=== PATIENT | male | born 1965 | race Caucasian/White ===

== ENCOUNTER 2019-06-15 05:57 | Observation (INO) | payer OTHER, SELFPAY ==
[2019-06-15] MEDS ORDERED: NA CHLORIDE 0.9% 1,000 ML ONE ×2 (06:13→08:43)
[2019-06-15] MEDS ORDERED: MORPHINE 4 MG/ML SYR ONE ×2 (06:13→07:04)
[2019-06-15] MEDS ORDERED: ONDANSETRON 4 MG/2 ML VIAL ONE ×2 (06:13→07:04)
[2019-06-15 06:33] LABS: Absolute Lymphocytes (CBC) 1.7 K/uL (0.7-4.9); Basophils % 0.3 % (0-1.3); Hematocrit 46.5 % (39.6-49.0); Lymphocytes % 10.2 % (15.3-44.8); MPV 8.1 fL (7.6-11.3); RBC Red Blood Cell Count 5.24 M/uL (4.33-5.43)
[2019-06-15 07:42] LABS: ALT/SGPT 18 U/L (12-78); AST/SGOT 13 U/L (15-37); Albumin 3.8 g/dL (3.4-5.0); Alkaline Phosphatase 74 U/L (45-117); BUN Blood Urea Nitrogen 14 mg/dL (7-18); Bicarbonate 27 mmol/L (21-32); Bilirubin Direct < 0.1 mg/dL (0-0.2); Bilirubin Total 0.3 mg/dL (0.2-1.0); Glucose Level 125 mg/dL (74-106); Lipase 104 U/L (73-393); Potassium 4.3 mmol/L (3.5-5.1); Protein, Total 6.7 g/dL (6.4-8.2); Sodium Level 144 mmol/L (136-145)
--- NOTE | 2019-06-15 08:09 | ER ---
Nurse's Notes [facility] Name: Davion Rivera Age: 53 yrs Sex: Male : 1965 Arrival Date: 06/15/2019 Time: 06:00 Bed 20 Private MD: Diagnosis: Cholecystitis;Cholelithiasis Presentation: 06/15 06:08 Presenting complaint: Patient states: he is having abdominal pain with vomiting and bb diarrhea since approx 0230 this morning. Transition of care: patient was not received from another setting of care. Onset of symptoms was June 15, 2019. Risk Assessment: Do you want to hurt yourself or someone else? Patient reports no desire to harm self or others. Initial Sepsis Screen: Does the patient meet any 2 criteria? No. Patient's initial sepsis screen is negative. Does the patient have a suspected source of infection? No. Patient's initial sepsis screen is negative. Care prior to arrival: None. 06:08 Method Of Arrival: Ambulatory bb 06:08 Acuity: CLEVE 3 bb Historical: - Allergies: 06:10 PENICILLINS; bb - Home Meds: 06:10 None [Active]; bb - PMHx: 06:10 gallstones; bb - PSHx: 06:10 Tonsillectomy; bb - Immunization history:: Adult Immunizations up to date. - Social history:: Smoking status: Patient uses tobacco products, smokes one pack cigarettes per day. Patient uses alcohol, occasionally. Patient/guardian denies using street drugs. - Ebola Screening: : No symptoms or risks identified at this time. Screenin:24 Abuse screen: Denies threats or abuse. Denies injuries from another. Nutritional rr5 screening: No deficits noted. Tuberculosis screening: No symptoms or risk factors identified. Fall Risk IV access (20 points). Total Cardona Fall Scale indicates No Risk (0-24 pts). Assessment: 06:15 General: Appears in no apparent distress. uncomfortable, Behavior is calm, cooperative, rr5 appropriate for age. Pain: Complains of pain in left upper quadrant and left lower quadrant Pain does not radiate. Pain currently is 7 out of 10 on a pain scale. Quality of pain is described as aching, Pain began gradually, Is intermittent. Neuro: Level of Consciousness is awake, alert, obeys commands, Oriented to person, place, time, situation, Appropriate for age. Cardiovascular: Capillary refill is > 3 seconds Patient's skin is warm and dry. Respiratory: Airway is patent Respiratory effort is even, unlabored, Respiratory pattern is regular, symmetrical. GI: Abdomen is round Reports lower abdominal pain, upper abdominal pain, intolerance of fluids, intolerance of food, nausea, vomiting. : No signs and/or symptoms were reported regarding the genitourinary system. EENT: No signs and/or symptoms were reported regarding the EENT system. Derm: Skin is intact, Skin temperature is warm. Musculoskeletal: Circulation, motion, and sensation intact. Capillary refill < 3 seconds. 07:04 Reassessment: Patient appears in no apparent distress at this time. Patient and/or em family updated on plan of care and expected duration. Pain level reassessed. Patient is alert, oriented x 3, equal unlabored respirations, skin warm/dry/pink. rates pain 7/10, provider notified, new medication orders received. 08:05 Reassessment: Patient appears in no apparent distress at this time. Patient and/or em family updated on plan of care and expected duration. Pain level reassessed. Patient is alert, oriented x 3, equal unlabored respirations, skin warm/dry/pink. rates pain 4/10 Patient states feeling better. 08:35 Reassessment: Dr. Merino at bedside. em 09:35 Reassessment: Patient appears in no apparent distress at this time. Patient and/or em family updated on plan of care and expected duration. Pain level reassessed. Patient is alert, oriented x 3, equal unlabored respirations, skin warm/dry/pink. Patient states feeling better. Patient states symptoms have improved. Vital Signs: 06:10 BP 166 / 78; Pulse 69; Resp 22 S; Temp 98(O); Pulse Ox 100% on R/A; Weight 90.72 kg bb (R); Height 5 ft. 11 in. (180.34 cm) (R); Pain 7/10; 06:33 BP 159 / 90; Pulse 62; Resp 20; Pulse Ox 98% on R/A; Pain 4/10; rr5 07:04 BP 148 / 71; Pulse 73; Resp 18; Pulse Ox 96% on R/A; Pain 7/10; em 08:05 BP 156 / 89; Pulse 77; Resp 16; Pulse Ox 98% on R/A; Pain 4/10; em 06:10 Body Mass Index 27.89 (90.72 kg, 180.34 cm) bb ED Course: 06:00 Patient arrived in ED. es 06:01 [facility] kb 06:01 Jordan Wheat MD is Attending Physician. kb 06:09 Triage completed. bb 06:10 Arm band placed on Patient placed in an exam room, on a stretcher, on pulse oximetry. bb Family accompanied patient. 06:10 Patient has correct armband on for positive identification. Placed in gown. Bed in low rr5 position. Call light in reach. Side rails up X2. Pulse ox on. NIBP on. 06:20 Inserted saline lock: 22 gauge in right antecubital area, using aseptic technique. rr5 ,using aseptic technique. inserted by emily GARCIA Blood collected. 06:23 Ever Lopez RN is Primary Nurse. rr5 06:35 Thermoregulation: warm blanket given to patient. rr5 07:40 Ultrasound completed. Patient tolerated well. Notified SHACKLER/PA tita. sg3 08:09 Dharmesh Merino MD is Hospitalizing Provider. kb 09:45 No provider procedures requiring assistance completed. Patient admitted, IV remains in em place. Administered Medications: 06:20 Drug: NS 0.9% 1000 ml Route: IV; Rate: 1000 ml; Site: right antecubital; rr5 08:17 Follow up: IV Status: Completed infusion; IV Intake: 1000ml em 06:21 Drug: Zofran 4 mg Route: IVP; Site: right antecubital; rr5 07:30 Follow up: Response: No adverse reaction em 06:23 Drug: morphine 4 mg {Note: rass 0.} Route: IVP; Site: right antecubital; rr5 07:30 Follow up: Response: No adverse reaction em 07:09 Drug: morphine 4 mg Route: IVP; Site: right antecubital; jl7 08:16 Follow up: Response: No adverse reaction; Pain is decreased; RASS: Alert and Calm (0) em 07:09 Not Given (Duplicate Order): morphine 4 mg IVP once; RASS on ADMIN: Combtv4, Very jl7 Agttd3, Agttd2, Rstlss1, AlertClm0, Drwsy-1, Lt Sdtn-2, Mod Sdtn-3, Dp Sdtn-4, UnArsble-5 07:09 Drug: Zofran 4 mg Route: IVP; Site: right antecubital; jl7 08:16 Follow up: Response: No adverse reaction em 08:14 Drug: Flagyl 500 mg Volume: 100 ml; Route: IVPB; Rate: 200 ml/hr; Infused Over: 30 em mins; Site: right antecubital; 08:51 Follow up: Response: No adverse reaction; IV Status: Completed infusion; IV Intake: em 100ml 08:43 Drug: NS 0.9% 1000 ml Route: IV; Rate: 125 ml/hr; Site: right antecubital; iw 09:48 Follow up: IV Status: Infusion continued upon admission; IV Intake: 100ml em 08:51 Drug: LevaQUIN 500 mg Volume: 100 ml; Route: IVPB; Infused Over: 60 mins; Site: right em antecubital; 09:48 Follow up: Response: No adverse reaction; IV Status: Completed infusion; IV Intake: em 100ml Intake: 08:17 IV: 1000ml; Total: 1000ml. em 08:51 IV: 100ml; Total: 1100ml. em 09:48 IV: 100ml; Total: 1200ml. em 09:48 IV: 100ml; Total: 1300ml. em Outcome: 08:09 Decision to Hospitalize by Provider. kb 09:45 Admitted to OR accompanied by nurse, family with patient, via stretcher. em 09:45 Condition: good 09:45 Instructed on the need for admit, Demonstrated understanding of instructions. 09:48 Patient left the ED. em Signatures: Tita Borges, PROJECT LEADER-C PROJECT LEADER-Ckb Marbella Macedo Edgar, MANAGER FLOAT MANAGER FLOAT em Emily Hurley, RN RN bb Coco Mccoy RN RADHA iw Lia Casas RN RN jl7 Yamini Ruiz [facility] [place] Lopez RN RN rr5 Corrections: (The following items were deleted from the chart) 06:34 06:33 BP 159 / 90; Pulse 62bpm; Resp 20bpm; Pulse Ox 98% RA; rr5 rr5
[2019-06-15] MEDS ORDERED: Levofloxacin500mg IV 500 MG/100 ML BAG IV ONE (08:10)
[2019-06-15] MEDS ORDERED: METRONIDAZOLE 500mg IVPB 500 MG/100 ML BAG IV ONE (08:10)
--- NOTE | 2019-06-15 08:10 | EDPHYS ---
Physician Documentation [facility] Name: Davion Rivera Age: 53 yrs Sex: Male : 1965 Arrival Date: 06/15/2019 Time: 06:00 Bed 20 Private MD: ED Physician Jordan Wheat HPI: 06/15 06:16 This 53 yrs old Male presents to ER via Ambulatory with complaints of kb Vomiting/Diarrhea, Abdominal Pain. 06:16 The patient has not experienced similar symptoms in the past. The patient has not kb recently seen a physician. 06:16 The patient presents with abdominal pain in the upper abdomen. Onset: The kb symptoms/episode began/occurred this morning, at 02:30. The symptoms do not radiate. Associated signs and symptoms: Pertinent positives: nausea, vomiting, and diarrhea. The symptoms are described as constant, sharp. Modifying factors: The symptoms are alleviated by nothing, the symptoms are aggravated by nothing. Severity of pain: At its worst the pain was moderate severe in the emergency department the pain is unchanged. Pt reports upper abd pain that started at 0230. Has had this pain in the past and told it was gallstones, but didn't follow up with a surgeon. Historical: - Allergies: 06:10 PENICILLINS; bb - Home Meds: 06:10 None [Active]; bb - PMHx: 06:10 gallstones; bb - PSHx: 06:10 Tonsillectomy; bb - Immunization history:: Adult Immunizations up to date. - Social history:: Smoking status: Patient uses tobacco products, smokes one pack cigarettes per day. Patient uses alcohol, occasionally. Patient/guardian denies using street drugs. - Ebola Screening: : No symptoms or risks identified at this time. ROS: 06:15 Constitutional: Negative for fever, chills, and weight loss, Cardiovascular: Negative kb for chest pain, palpitations, and edema, Respiratory: Negative for shortness of breath, cough, wheezing, and pleuritic chest pain, Back: Negative for injury and pain, : Negative for injury, bleeding, discharge, and swelling, MS/Extremity: Negative for injury and deformity, Skin: Negative for injury, rash, and discoloration, Neuro: Negative for headache, weakness, numbness, tingling, and seizure. 06:15 Abdomen/GI: Positive for abdominal pain, nausea, vomiting, and diarrhea. Exam: 06:15 Constitutional: This is a well developed, well nourished patient who is awake, alert, kb and in no acute distress. Head/Face: Normocephalic, atraumatic. Neck: Trachea midline, no thyromegaly or masses palpated, and no cervical lymphadenopathy. Supple, full range of motion without nuchal rigidity, or vertebral point tenderness. No Meningismus. Chest/axilla: Normal chest wall appearance and motion. Nontender with no deformity. No lesions are appreciated. Cardiovascular: Regular rate and rhythm with a normal S1 and S2. No gallops, murmurs, or rubs. Normal PMI, no JVD. No pulse deficits. Respiratory: Lungs have equal breath sounds bilaterally, clear to auscultation and percussion. No rales, rhonchi or wheezes noted. No increased work of breathing, no retractions or nasal flaring. Back: No spinal tenderness. No costovertebral tenderness. Full range of motion. Skin: Warm, dry with normal turgor. Normal color with no rashes, no lesions, and no evidence of cellulitis. MS/ Extremity: Pulses equal, no cyanosis. Neurovascular intact. Full, normal range of motion. Neuro: Awake and alert, GCS 15, oriented to person, place, time, and situation. Cranial nerves II-XII grossly intact. Motor strength 5/5 in all extremities. Sensory grossly intact. Cerebellar exam normal. Normal gait. 06:15 Abdomen/GI: Inspection: abdomen appears normal, Bowel sounds: normal, in all quadrants, Palpation: soft, in all quadrants, moderate abdominal tenderness, in the right upper quadrant, left upper quadrant and left lower quadrant. Vital Signs: 06:10 BP 166 / 78; Pulse 69; Resp 22 S; Temp 98(O); Pulse Ox 100% on R/A; Weight 90.72 kg bb (R); Height 5 ft. 11 in. (180.34 cm) (R); Pain 7/10; 06:33 BP 159 / 90; Pulse 62; Resp 20; Pulse Ox 98% on R/A; Pain 4/10; rr5 07:04 BP 148 / 71; Pulse 73; Resp 18; Pulse Ox 96% on R/A; Pain 7/10; em 08:05 BP 156 / 89; Pulse 77; Resp 16; Pulse Ox 98% on R/A; Pain 4/10; em 06:10 Body Mass Index 27.89 (90.72 kg, 180.34 cm) bb MDM: 06:02 Patient medically screened. kb 06:15 Data reviewed: vital signs, nurses notes. Data interpreted: Pulse oximetry: on room air kb is 100 %. Interpretation: normal. 08:08 Counseling: I had a detailed discussion with the patient and/or guardian regarding: the kb historical points, exam findings, and any diagnostic results supporting the discharge/admit diagnosis, lab results, radiology results, the need for further work-up and treatment in the hospital. Physician consultation: Dharmesh Merino MD was called at 08:05, regarding admission, to the medical/surgical unit. patient's condition, and will see patient shortly. 06/15 06:07 Order name: Basic Metabolic Panel; Complete Time: 07:44 kb 06/15 06:07 Order name: CBC with Diff; Complete Time: 09:38 kb 06/15 06:07 Order name: Hepatic Function; Complete Time: 07:44 kb 06/15 06:07 Order name: Lipase; Complete Time: 07:44 kb 06/15 06:07 Order name: US Abdomen Limited kb 06/15 09:37 Order name: Manual Differential; Complete Time: 09:38 EDMS 06/15 08:43 Order name: US; Complete Time: 08:44 EDMS 06/15 06:07 Order name: IV Saline Lock; Complete Time: 06:24 kb 06/15 06:07 Order name: Labs collected and sent; Complete Time: 06:24 kb Administered Medications: 06:20 Drug: NS 0.9% 1000 ml Route: IV; Rate: 1000 ml; Site: right antecubital; rr5 08:17 Follow up: IV Status: Completed infusion; IV Intake: 1000ml em 06:21 Drug: Zofran 4 mg Route: IVP; Site: right antecubital; rr5 07:30 Follow up: Response: No adverse reaction em 06:23 Drug: morphine 4 mg {Note: rass 0.} Route: IVP; Site: right antecubital; rr5 07:30 Follow up: Response: No adverse reaction em 07:09 Drug: morphine 4 mg Route: IVP; Site: right antecubital; jl7 08:16 Follow up: Response: No adverse reaction; Pain is decreased; RASS: Alert and Calm (0) em 07:09 Not Given (Duplicate Order): morphine 4 mg IVP once; RASS on ADMIN: Combtv4, Very jl7 Agttd3, Agttd2, Rstlss1, AlertClm0, Drwsy-1, Lt Sdtn-2, Mod Sdtn-3, Dp Sdtn-4, UnArsble-5 07:09 Drug: Zofran 4 mg Route: IVP; Site: right antecubital; jl7 08:16 Follow up: Response: No adverse reaction em 08:14 Drug: Flagyl 500 mg Volume: 100 ml; Route: IVPB; Rate: 200 ml/hr; Infused Over: 30 em mins; Site: right antecubital; 08:51 Follow up: Response: No adverse reaction; IV Status: Completed infusion; IV Intake: em 100ml 08:43 Drug: NS 0.9% 1000 ml Route: IV; Rate: 125 ml/hr; Site: right antecubital; iw 09:48 Follow up: IV Status: Infusion continued upon admission; IV Intake: 100ml em 08:51 Drug: LevaQUIN 500 mg Volume: 100 ml; Route: IVPB; Infused Over: 60 mins; Site: right em antecubital; 09:48 Follow up: Response: No adverse reaction; IV Status: Completed infusion; IV Intake: em 100ml Disposition: 22:51 Co-signature as Attending Physician, Jordan Wheat MD. Disposition: 06/15/19 08:09 Hospitalization ordered by Dharmesh Merino for Observation. Preliminary diagnosis are Cholecystitis, Cholelithiasis. - Bed requested for Telemetry/MedSurg (observation). - Status is Observation. em - Condition is Stable. - Problem is new. - Symptoms are unchanged. UTI on Admission? No Signatures: Dispatcher [employer] Tita Naik, DREA-Dimitry CABLE REPAIRER-Leo Rodriguez, FACILITY ATTENDANT FACILITY ATTENDANT em Emily Hurley, RN RN bb Coco Mccoy, RADHA GARCIA iw Lia Casas RN RN jl7 Jordan Wheat MD MD Ever Lopez RN RN rr5 Corrections: (The following items were deleted from the chart) 06:18 06:16 Severity of symptoms: At their worst the symptoms were moderate severe in the emergency department the symptoms are unchanged 09:48 08:09 Hospitalization Ordered by Dharmesh Merino MD for Observation. Preliminary diagnosis em is Cholecystitis; Cholelithiasis. Bed requested for Telemetry/MedSurg (observation). Status is Observation. Condition is Stable. Problem is new. Symptoms are unchanged. UTI on Admission? No.
--- NOTE | 2019-06-15 08:42 | RAD REPORT ---
EXAM DESCRIPTION: US - Abdomen Exam Limited - 06/15/2019 8:15 am CLINICAL HISTORY: ABD PAIN COMPARISON: No comparisons FINDINGS: A large amount of sludge is present filling most of the lumen of a normal-sized gallbladde r. Wall is thickened and there is a small amount of pericholecystic fluid. Tiny punctate gallstones c ould be present within the sludge. No common duct stone or biliary tree dilatation identified. IMPRESSION: Gallbladder wall thickening with pericholecystic fluid present. Large amount of sludge i s present in the gallbladder lumen. Correlation is needed with any acute cholecystitis clinical or laboratory findings. No duct stone or biliary tree dilatation.
[2019-06-15 09:36] LABS: Blood Morphology Comment NOT SEEN (NOT SEEN); Platelet Estimate ADEQ
[2019-06-15] MEDS ORDERED: BUPIVACA 0.5%/EPI 0.0005%/PF 10 ML VIAL ONE (09:46)
[2019-06-15] MEDS ORDERED: SUCCINYLCHOLINE 20 MG/ML (10 ML) IV ONE (09:49)
[2019-06-15] MEDS ORDERED: ROCURONIUM 50 MG/5 ML VIAL IV ONE ×2 (09:50→10:03)
[2019-06-15] MEDS ORDERED: PROPOFOL 200 MG/20 ML VIAL IV ONE (10:03)
[2019-06-15] MEDS ORDERED: MIDAZOLAM HCL 2 MG/2 ML INJ ONE (10:03)
[2019-06-15] MEDS ORDERED: FENTANYL CITR 250 MCG/5 ML ONE (10:03)
[2019-06-15] MEDS ORDERED: GLYCOPYRROLATE 0.2 MG/ML SYR ONE (10:47)
[2019-06-15] MEDS ORDERED: NEOSTIGMINE 1 MG/ML -10 ML VIAL ONE (10:47)
[2019-06-15] MEDS ORDERED: Ringers Lactate 1,000 ML IV ONE (11:30)
[2019-06-15] MEDS ORDERED: MORPHINE 4 MG/ML SYR IV PRN (11:46)
--- NOTE | 2019-06-15 11:49 | P.OP ---
Preoperative diagnosis: Acute Calculous Cholecystitis Postoperative diagnosis: Acute Calculous Cholecystitis Primary procedure: Laparoscopic Cholecystectomy Anesthesia: GETA + Local Estimated blood loss: <10cc Specimen: Gallbladder Findings: Grossly inflammed GB, thick bile, short cystic duct, ant/post cystic art Complications: None Transferred to: Recovery Room Condition: Good
[2019-06-15] MEDS: HYDROMORPHONE HCL 2 MG/ML inj ONE ×5 (12:18→12:40)
[2019-06-15] MEDS: METRONIDAZOLE 500mg IVPB 500 MG/100 ML BAG IV SCH (16:51)
[2019-06-15] MEDS: NA CHLORIDE 0.9% 1,000 ML IV SCH ×2 (16:51→19:46)
[2019-06-15] MEDS: ONDANSETRON 4 MG/2 ML VIAL IV PRN (16:57)
[2019-06-15] MEDS: HYDROCODONE/APAP 5/325 MG TAB PO PRN ×2 (16:57→21:58)
[2019-06-15 17:33] VITALS: BMI 27.8
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
--- NOTE | 2019-06-15 22:23 | OP ---
Date of Procedure: 06/15/2019 Surgeon: Dharmesh Merino MD, Preoperative Diagnosis: Acute calculous cholecystitis. Postoperative Diagnosis: Acute calculous cholecystitis. Procedure Performed: Laparoscopic cholecystectomy. Anesthesia: General endotracheal plus local with 0.5% Marcaine with epinephrine. Estimated Blood Loss: 10 mL. Specimen: Gallbladder. Findings: 1.Grossly inflamed gallbladder. 2.Thick bowel after decompression needle. 3.Short cystic duct. 4.Anterior-posterior branch of the cystic artery appreciated. Complications: None. Condition: Transferred to recovery room in good condition. Procedure In Detail: After informed consent was obtained, patient brought to the operating room, pre pped and draped in the usual sterile fashion. After adequate anesthesia was achieved, the supraumbil ical area was anesthetized with 0.5% Marcaine and incised. A 5 mm 0-degree optical trocar was introd uced in the abdomen without evidence of complication. Insufflation was obtained to 15 mmHg at this t gin. The area was inspected for any vital structures. There was no injury to vital structures upon entry into the abdomen. Additional trocar site was chosen in the epigastrium. This was similarly an esthetized, sharply incised, and a 5-mm trocar was introduced in the abdomen without evidence of comp lication. The umbilical trocar then up-sized to a 12 mm under direct visualization without evidence of complication. Additional trocar site was chosen in the right upper quadrant, it was similarly ane sthetized, sharply incised, and a 5-mm trocar was introduced in the abdomen without evidence of compl ication. The patient was positioned in head up right-side up position. Ratcheted graspers were used to attempt to grasp the patient's gallbladder, which was found to be enlarged, dilated, and full of stones. As such, a decompression needle was brought in. The gallbladder was decompressed partially. The bowel was found to be quite thick and viscous. I then grasped the patient's gallbladder, place d towards the patient's right shoulder and dissected down to remove the omental attachments to the an terior surface of the gallbladder. In addition, the stomach was firmly attached to the gallbladder. This required both blunt dissection followed by electrocautery to remove the alveolar tissue away an d dissect the stomach away from the anterior surface of the gallbladder near the Manoj pouch. Aft er dissection, I cleared the anterior surface structures. I dissected down to encircle the cystic du ct and cystic artery. The cystic artery was found to have both the anterior and posterior branches w ith a diminutive posterior branch and a larger anterior branch feeding on to the anterior surface of the gallbladder. The critical view of safety was obtained at this time. I was able to visualize the course of the inferior vena cava as that had somewhat larger extrahepatic course, but it was clearly away from our operative field. After encircling the cystic duct and cystic artery, the cystic duct was appreciated to be quite short. This was clipped doubly on the proximal side and singly on the di stal side of both the cystic duct and the anterior and posterior branches of the cystic artery. The 2 structures were then ligated ensuring there was no narrowing of the common bile duct by clips in pr oximity. At this point, the gallbladder was removed from the hepatic fossa without evidence of compl ication. Hemostasis was easily achieved with electrocautery on the hepatic bed. The gallbladder was then placed in an EndoCatch bag, removed the umbilical trocar. Reinsufflation at this time was obta ined. The area was copiously irrigated multiple times until completely clear. There were no additio nal hemostatic maneuvers required. The clips were found to be in good anatomic position without any evidence of leakage. The area was copiously irrigated multiple times again, suctioned until complete ly dry. Patient was positioned in neutral position. All effluent was then suctioned once again and the umbilical trocar was removed. The umbilical trocar site was closed with a Naveed-Joel suture passer with 0 Vicryl in interrupted fashion with good approximation of tissues. The remaining troca rs were then used to decompress the abdomen under direct visualization and the abdomen was completely desufflated. All trocars were removed. All skin incisions were copiously irrigated and closed with a 4-0 Monocryl in a running fashion. Dermabond placed over the top. Patient tolerated the procedur e without evidence of complication, transferred to the PACU in good condition. All counts were corre ct at the end of the case. FIFI/LAUREANO Voice ID: [id number] Report ID: [id number]
[2019-06-16] MEDS: METRONIDAZOLE 500mg IVPB 500 MG/100 ML BAG IV SCH ×2 (00:24→08:35)
[2019-06-16] MEDS: NA CHLORIDE 0.9% 1,000 ML IV SCH ×2 (03:59→11:46)
[2019-06-16] MEDS: HYDROCODONE/APAP 5/325 MG TAB PO PRN ×2 (05:42→12:00)
[2019-06-16] MEDS: ONDANSETRON 4 MG/2 ML VIAL IV PRN (05:42)
[2019-06-16 05:50] LABS: Basophils % 0.5 % (0-1.3); Hematocrit 41.4 % (39.6-49.0); Lymphocytes % 19.4 % (15.3-44.8); MPV 8.4 fL (7.6-11.3); RBC Red Blood Cell Count 4.61 M/uL (4.33-5.43)
[2019-06-16 05:59] LABS: Albumin 3.4 g/dL (3.4-5.0); Bilirubin Direct 0.2 mg/dL (0-0.2); Bilirubin Total 0.9 mg/dL (0.2-1.0); Potassium 4.1 mmol/L (3.5-5.1); Protein, Total 6.5 g/dL (6.4-8.2)
[2019-06-16] MEDS ORDERED: Levofloxacin500mg IV 500 MG/100 ML BAG IV SCH (08:00)
[2019-06-16 09:30] VITALS: O2SAT 93
[2019-06-16 15:01] VITALS: BP 158/93; TEMP 99.4
== END 2019-06-16 14:05 | disposition home or self-care (01) ==
LOC: ER 05:57 → ERHOLD 08:10 → 2ND 10:37
PROVIDERS: ADMIT Surgery; ATTEND Surgery
PROC: 0FT44ZZ Resection of Gallbladder, Percutaneous Endoscopic Approach (ICD-10-PCS; principal; 2019-06-15 09:30)
DX: K80.12 Calculus of gallbladder with acute and chronic cholecystitis without obstruction (principal); J45.909 Unspecified asthma, uncomplicated; F17.210 Nicotine dependence, cigarettes, uncomplicated; Z88.0 Allergy status to penicillin
CPT/HCPCS: 96365; 96367; 96361; 85025 ×2; 80048; 36415; 80076 ×2; 88304; 83690 ×2; 80053; 76705; 96375; 99285; 47562; J2704; J2710; J0330; J2250; J1170; J3010; J7120; J7030 ×3; J2405 ×4; G0378 ×3